=== PATIENT | female | born 1995 | race Caucasian/White ===

== ENCOUNTER 2019-01-09 16:54 | Emergency (ER) | payer SELFPAY ==
--- NOTE | 2019-01-09 17:45 | ER Document Report ---
ED Medical Screen (RME) - General Chief Complaint: Chest Pain Stated Complaint: CHEST PAIN Time Seen by Provider: 01/09/19 17:42 Notes: Healthy 23-year-old female presents the emergency department with chief complaint of left anterior chest pain since 4 AM this morning. She says that the pain is worse when she stretches but is still constant in nature, does not radiate, has some mild nausea, no shortness of breath or diaphoresis, no signif icant family cardiac history. Patient is a smoker. Reproducible chest pain when I palpated over her anterior chest. I have greeted and performed a rapid initial assessment of this patient. A comprehensive ED assessment and evaluation of the patient, analysis of test results and completion of medical decision making process will be conducted by an additional ED providers. TRAVEL OUTSIDE OF THE [place] IN LAST 30 DAYS: No - Related Data Allergies/Adverse Reactions: No Known Allergies Allergy (Verified 01/09/19 16:56) Past Medical History - Social History Chew tobacco use (# tins/day): No Frequency of alcohol use: None Drug Abuse: None Family history: CAD, DM Renal/ Medical History: Denies: Hx Peritoneal Dialysis Past Surgical History: Reports: Hx Adenoidectomy, Hx Myringotomy, Hx Tonsillectomy - Immunizations Immunizations up to date: Yes Hx Diphtheria, Pertussis, Tetanus Vaccination: Yes Physical Exam - Vital signs Vitals: Temp Pulse Resp BP Pulse Ox 98.2 F 95 20 134/71 H 96 01/09/19 17:08 01/09/19 17:08 01/09/19 17:08 01/09/19 17:08 01/09/19 17:08 - Notes Notes: PHYSICAL EXAMINATION: Reviewed vital signs and charting by RN GENERAL: Alert, interacts well. No acute distress. HEAD: Normocephalic, atraumatic. EYES: Pupils equal and round. Extraocular movements intact. ENT: Oral mucosa moist, tongue midline. NECK: Full range of motion. Trachea midline. LUNGS: Clear to auscultation bilaterally, no wheezes, rales, or rhonchi. No respiratory distress. CHEST: Reproducible anterior chest wall pain on palpation HEART: Regular rate and rhythm. No murmur ABDOMEN: Deferred in triage EXTREMITIES: Moves all 4 extremities spontaneously. No edema, No cyanosis. PSYCH: Normal affect, normal mood. SKIN: Warm, dry, normal turgor. No rashes or lesions noted. Course - Vital Signs Vital signs: Temp Pulse Resp BP Pulse Ox 98.2 F 95 20 134/71 H 96 01/09/19 17:08 01/09/19 17:08 01/09/19 17:08 01/09/19 17:08 01/09/19 17:08
--- NOTE | 2019-01-09 17:58 | EKG REPORT ---
SEVERITY:- NORMAL ECG - SINUS RHYTHM : Confirmed by: Thang Chambers MD 09-Jan-2019 17:57:57
--- NOTE | 2019-01-09 18:00 | RADIOLOGY REPORT (SQ) ---
EXAM DESCRIPTION: CHEST 2 VIEWS COMPLETED DATE/TIME: 01/09/2019 5:52 pm REASON FOR STUDY: Chest pain COMPARISON: None. EXAM PARAMETERS: NUMBER OF VIEWS: two views TECHNIQUE: Digital Frontal and Lateral radiographic views of the chest acquired. RADIATION DOSE: NA LIMITATIONS: none FINDINGS: LUNGS AND PLEURA: No opacities, masses or pneumothorax. No pleural effusion. MEDIASTINUM AND HILAR STRUCTURES: No masses or contour abnormalities. HEART AND VASCULAR STRUCTURES: Cardiomegaly. BONES: No acute findings. HARDWARE: None in the chest. OTHER: No other significant finding. IMPRESSION: Cardiomegaly without acute abnormality of the lungs. TECHNICAL DOCUMENTATION: JOB ID: [id number] [employer]- All Rights Reserved Reading location - IP/workstation name: [email or web address]
[2019-01-09] MEDS ORDERED: ONDANSETRON HCL INJ/PF 4 MG/2 ML SDV IV ONE (18:16)
--- NOTE | 2019-01-09 18:21 | ER Document Report ---
ED Cardiac - General Chief Complaint: Chest Pain Stated Complaint: CHEST PAIN Time Seen by Provider: 01/09/19 17:42 Notes: Patient is a 23-year-old female who presents to the emergency department with a chief complaint of left anterior chest pain. Patient states that the chest discomfort woke her up around 4 AM this morning. Patient states it feels like a constant squeezing. Patient states it is nonradiating. Patient states the pain is worse with palpation to the left side of her chest and when she attempts to stretch her back she feels a tugging sensation on the left side of her chest. Patient denies shortness of breath, cough, fever, abdominal pain, calf pain or swelling, vomiting or diarrhea. Patient states she has had nausea throughout the day. Patient denies urinary symptoms. Patient denies recent long car rides. Patient states that she does smoke 1 pack of cigarettes per day. Patient denies history of cardiac problems and diabetes. Patient states she did attempt to take ibuprofen around noon today with minimal relief. TRAVEL OUTSIDE OF THE [place] IN LAST 30 DAYS: No - Related Data Allergies/Adverse Reactions: No Known Allergies Allergy (Verified 01/09/19 16:56) Past Medical History - General Information source: Patient - Social History Smoking Status: Current Every Day Smoker Cigarette use (# per day): Yes - 1 ppd Chew tobacco use (# tins/day): No Smoking Education Provided: Yes Frequency of alcohol use: None Drug Abuse: None Lives with: Family Family History: None Patient has suicidal ideation: No Patient has homicidal ideation: No - Past Medical History Cardiac Medical History: Reports: None Pulmonary Medical History: Reports: None EENT Medical History: Reports: None Neurological Medical History: Reports: None Endocrine Medical History: Reports: None Renal/ Medical History: Reports: None. Denies: Hx Peritoneal Dialysis Malignancy Medical History: Reports: None GI Medical History: Reports: None Musculoskeletal Medical History: Reports None Skin Medical History: Reports None Psychiatric Medical History: Reports: None Traumatic Medical History: Reports: None Infectious Medical History: Reports: None Past Surgical History: Reports: Hx Adenoidectomy, Hx Myringotomy, Hx Tonsillectomy - Immunizations Immunizations up to date: Yes Hx Diphtheria, Pertussis, Tetanus Vaccination: Yes Review of Systems - Review of Systems Constitutional: No symptoms reported EENT: No symptoms reported Cardiovascular: See HPI Respiratory: No symptoms reported Gastrointestinal: See HPI Genitourinary: No symptoms reported Female Genitourinary: No symptoms reported Musculoskeletal: No symptoms reported Skin: No symptoms reported Hematologic/Lymphatic: No symptoms reported Neurological/Psychological: No symptoms reported Physical Exam - Vital signs Vitals: Temp Pulse Resp BP Pulse Ox 98.2 F 95 20 134/71 H 96 01/09/19 17:08 01/09/19 17:08 01/09/19 17:08 01/09/19 17:08 01/09/19 17:08 Interpretation: Normal - Notes Notes: GENERAL: Well-appearing, well-nourished and in no acute distress. HEAD: Atraumatic, normocephalic. EYES: Pupils equal round and reactive to light, extraocular movements intact, sclera anicteric, conjunctiva are normal. ENT: TMs normal, nares patent, oropharynx clear without exudates. Moist mucous membranes. NECK: Normal range of motion, supple without lymphadenopathy or JVD. LUNGS: Breath sounds clear to auscultation bilaterally and equal. No wheezes rales or rhonchi. HEART: Regular rate and rhythm without murmurs, rubs or gallops. ABDOMEN: Soft, nontender, normoactive bowel sounds. No guarding, no rebound. No masses appreciated. Left reproducible chest pain. BACK: No cervical, thoracic, lumbar midline tenderness. No saddle anesthesia, normal distal neurovascular exam. GENITOURINARY: Deferred. EXTREMITIES: Normal range of motion, no pitting or edema. No clubbing or cyanosis. NEUROLOGICAL: Cranial nerves II through XII grossly intact. Normal speech, normal gait. PSYCH: Normal mood, normal affect. SKIN: Warm, Dry, normal turgor, no rashes or lesions noted. Course - Re-evaluation Re-evalutation: 01/09/19 18:25 Patient resting comfortably on stretcher no acute distress. Patient is nontoxi c-appearing. Will obtain basic labs and add on a urinalysis as well as a urine hCG. 01/09/19 21:01 Patient states that since arriving to the emergency department her left-sided chest pain has improved but still present. I will give a dose of Toradol. I did inform the patient that her liver enzymes were slightly elevated and that this was also present back in 2013 when she had blood work drawn at this hospital. Patient states she is never been told that her enzymes were slightly elevated. Patient states she does not drink alcohol. Patient was PERC negative. Patient states she does not take any daily medication besides ranitidine for her acid reflux, has not been on a long car rides, does not have any calf pain or unilateral leg swelling, no recent surgery or any other risk factors for blood clot. Patient's chest x-ray did show cardiomegaly without any other abnormalities. I did discuss this with my supervising physician Dr. Hall who has looked at the patient's labs, chest x-ray and EKG and suggest that the patient follow-up with [facility] and to return with strict precautions. I did explain to the patient to stop smoking as this can be detrimental to her health as well as her heart health. Patient to return for any acute worsening signs or symptoms. - Vital Signs Vital signs: Temp Pulse Resp BP Pulse Ox 98.2 F 95 20 134/71 H 96 01/09/19 17:08 01/09/19 17:08 01/09/19 17:08 01/09/19 17:08 01/09/19 17:08 - Laboratory Result Diagrams: 01/09/19 17:59 01/09/19 17:59 Laboratory results interpreted by me: 01/09/19 01/09/19 01/09/19 17:59 17:59 19:42 WBC 14.1 H Absolute Neutrophils 9.9 H AST 41 H ALT 68 H Alkaline Phosphatase 141 H Urine Nitrite POSITIVE H Ur Leukocyte Esterase SMALL H - Diagnostic Test Radiology reviewed: Reports reviewed Radiology results interpreted by me: 01/09/19 18:28 Patient is chest x-ray shows a cardiomegaly without any other abnormality. - EKG Interpretation by Me Additional EKG results interpreted by me: 01/09/19 18:29 Patient's EKG shows sinus rhythm with a heart rate of 94, UT interval is 164, QT 316 QTC is 451. Patient has a left axis deviation. There does not appear to be any ST segment changes in consecutive leads. There is no other EKG for comparison. Discharge - Discharge Clinical Impression: Cardiomegaly, Anterior chest wall pain, Elevated LFTs Condition: Stable Disposition: HOME, SELF-CARE Additional Instructions: Today you were seen in the emergency department for left anterior chest wall pain. We did test a cardiac enzyme called a troponin which was negative. This is promising as your pain developed around 4 AM this morning and has been continuous. Your chest pain was worse when you attempted to straighten or stretch your back and with palpation. The symptoms are most likely musculoskeletal in nature. Sometimes this is caused by strain of the muscles or joints in the chest due to direct trauma, physical activity, coughing or vomiting. Continue to take ibuprofen or other anti-inflammatories to help with this. If the pain is new and appears to be a muscle strain you can use cold packs to the area. After 24 to 48 hours you can put warm compresses to the area. Today your liver enzymes are slightly elevated. They were also elevated back in 2013 and this does not appear to be a new issue. It is very important that you know that your liver enzymes are elevated and that you follow-up with your primary care physician at [facility] to have this evaluated and to have a physical as you have not had one in years. We did also perform a chest x-ray which did show a minor enlargement of the heart. This could be caused by many reasons but you do need to follow-up with your primary care physician. Please stop smoking as this is detrimental to your health as well to your heart health, monitor your blood pressure if possible and keep a blood pressure log so you can take this to your physician. Please eat healthy limit foods that are high in fat and limit carbs. Liver Function Abnormality Your evaluation has shown an abnormality of your liver function. This may not be serious, but you need further testing. Abnormal liver function can be caused by alcohol, medicines, virus infections, heart failure, tumors, gallbladder problems, and many other diseases. But sometimes "abnormal" liver enzymes are "normal" -- it's just the way your liver works and there's nothing wrong. We need to be sure. If your doctor thinks the abnormal test was caused by alcohol, medicine, or a recent virus, we may just repeat the liver enzyme test later. Often, the test shows that the elevated enzymes are back to normal. Usually no treatment is necessary, except for avoiding the cause of the liver dysfunction (such as alcohol or a specific medicine). Further testing could include an ultrasound of the liver, liver scan, or perhaps a liver biopsy in difficult cases. Call the doctor if you become increasingly yellow, vomit repeatedly, begin to bruise or bleed easily, or have worsening abdominal pain. Chest Wall Pain Your chest pain has been diagnosed as coming from the chest wall. This is often caused by straining the muscles or joints in the chest during physical activity, direct trauma, coughing, or vigorous vomiting. Persons with arthritis are especially prone to this type of pain, due to inflammation of the cartilage joints near the breast bone. Occasionally, no cause can be found. Rest from strenuous physical activity. This kind of chest pain is usually made worse by movement of the chest. Depending on the symptoms, we may pr escribe medicine for pain, muscle relaxation, and antiinflammatory effects. If the pain is new, and seems to be due to muscle strain, cold packs can help. Otherwise, apply gentle warmth to the painful area for 15 minutes every hour or two. You should contact the doctor immediately if things change. Further evaluation is needed if you develop a fever or cough, if the nature of the pain changes, or if you become short of breath. Chest Pain of Unclear Cause The exact cause of your chest pain isn't clear. Fortunately, there is no evidence of a dangerous medical condition. Further testing may be required to find the source of the pain. Most often, we find that this pain is coming from the chest wall -- the muscles or rib joints in the chest. But chest pain can come from the lung and lung lining, the esophagus, the heart valves or heart lining, and even the stomach or gallbladder. Rest. Eat lightly until the pain is gone. We may prescribe medicine for pain and inflammation. You should call the physician immediately if the pain radiates to the shoulder, jaw or arms; if you start to run a fever or develop a cough; or if you develop shortness of breath, or other new or alarming symptoms. Prescriptions: Nitrofurantoin/Nitrofuran Mac [Macrobid 100 mg Capsule] 1 tab PO BID #10 capsule Forms: Smoking Cessation Education
[2019-01-09 18:29] LABS: ABSOLUTE EOSINOPHILS # (AUTO) 0.2 10^3/uL (0.0-0.6); ABSOLUTE LYMPHOCYTES (AUTO) 3.3 10^3/uL (0.5-4.7); ABSOLUTE MONOCYTES (AUTO) 0.7 10^3/uL (0.1-1.4); ABSOLUTE NEUT (AUTO) 9.9 10^3/uL (1.7-8.2); BASOPHILS % (AUTO) 0.4 % (0-2); EOSINOPHILS % (AUTO) 1.3 % (0-6); HEMATOCRIT 41.8 % (36.0-47.0); LYMPHOCYTES % (AUTO) 23.6 % (13-45); MEAN CORPUSCULAR HEMOGLOBIN 30.9 pg (27.0-33.4); MEAN CORPUSCULAR HGB CONC 33.6 g/dL (32.0-36.0); MEAN CORPUSCULAR VOLUME 92 fl (80-97); MONOCYTES % (AUTO) 4.8 % (3-13); PLATELET COUNT 240 10^3/uL (150-450); RED BLOOD COUNT 4.55 10^6/uL (3.72-5.28); RED CELL DISTRIBUTION WIDTH 13.1 % (11.5-14.0); SEGMENTED NEUTROPHILS % (AUTO) 69.9 % (42-78); TOTAL CELLS COUNTED % (AUTO) 100 %; WHITE BLOOD COUNT 14.1 10^3/uL (4.0-10.5)
[2019-01-09 18:47] LABS: ALANINE AMINOTRANSFERASE 68 U/L (9-52); ALBUMIN 4.5 g/dL (3.5-5.0); ALKALINE PHOSPHATASE 141 U/L (38-126); ANION GAP 7 (5-19); ASPARTATE AMINO TRANSFERASE 41 U/L (14-36); BILIRUBIN,DIRECT 0.2 mg/dL (0.0-0.4); BILIRUBIN,TOTAL 0.6 mg/dL (0.2-1.3); BLOOD UREA NITROGEN 16 mg/dL (7-20); CALCIUM 9.9 mg/dL (8.4-10.2); CARBON DIOXIDE 28 mmol/L (22-30); CHLORIDE 104 mmol/L (98-107); GLUCOSE 79 mg/dL (75-110); POTASSIUM 4.4 mmol/L (3.6-5.0); SODIUM 138.9 mmol/L (137-145); TOTAL PROTEIN 7.3 g/dL (6.3-8.2)
[2019-01-09 20:12] LABS: APPEARANCE,URINE SLIGHTLY-CLOUDY; BILIRUBIN,URINE NEGATIVE (NEGATIVE); COLOR,URINE YELLOW; GLUCOSE, URINE NEGATIVE (NEGATIVE); KETONES,URINE NEGATIVE (NEGATIVE); LEUKOCYTE ESTERASE,URINE SMALL (NEGATIVE); NITRITE,URINE POSITIVE (NEGATIVE); PROTEIN,URINE NEGATIVE (NEGATIVE); URINE SPECIFIC GRAVITY 1.021; UROBILINOGEN,URINE NEGATIVE mg/dL (<2.0)
[2019-01-09] MEDS ORDERED: KETOROLAC TROMETHAMINE INJ/PF 30 MG/1 ML SDV IV ONE (20:39)
[2019-01-09] MEDS ORDERED: NITROFURANTOIN MONOHYD/M-CRYST 100 MG CAPSULE PO ONE (20:39)
[2019-01-09 21:07] VITALS: BP 105/66
== END 2019-01-09 21:45 | disposition home or self-care (01) ==
LOC: ER 16:54
DX: I51.7 Cardiomegaly (principal); R07.89 Other chest pain; R74.8 Abnormal levels of other serum enzymes; F17.210 Nicotine dependence, cigarettes, uncomplicated; Z79.899 Other long term (current) drug therapy
CPT/HCPCS: 93005; 99285; 96374; 96375; 36415; 87086; 85025; 81025; 87088; 80053; 81001; 84484; 87186; 71046; 93010; J1885; J2405; J8499